=== PATIENT | female | born 1990 | race Caucasian/White ===

== ENCOUNTER → 2017-02-10 | Outpatient (CLI) | payer OTHER ==
--- NOTE | 2017-02-10 11:02 | XR ---
EXAMINATION TYPE: XR shoulder complete RT, XR humerus RT DATE OF EXAM: 02/10/2017 CLINICAL HISTORY: Shoulder contusion per order. Injury one week ago with pain. TECHNIQUE: Three views of the right shoulder are obtained. 2 views right humerus are acquired. COMPARISON: None. FINDINGS: There is no acute fracture/dislocation evident in the right shoulder. The acromioclavicul ar and glenohumeral joint spaces appear within normal limits. The visualized ribs are intact and unr emarkable. Images of right humerus show no acute fracture or dislocation. Visualized portion of right elbow join t is within normal limits. Overlying soft tissue is unremarkable. IMPRESSION: There is no acute fracture or dislocation in the right humerus or shoulder.
== END | disposition home or self-care (01) ==
LOC: RADXRMAIN 10:40
PROVIDERS: ATTEND Emergency Medicine
DX: S40.011A Contusion of right shoulder, initial encounter (principal); S40.021A Contusion of right upper arm, initial encounter

== ENCOUNTER 2017-09-18 11:58 | Outpatient (CLI) | payer BC ==
[2017-09-18 12:19] VITALS: BP 128/76; PULSE 104; RESP 18; TEMP 97.9
--- NOTE | 2017-09-19 15:55 | P.MSEPDOC ---
Presenting Problems - Arrival Data Date of Arrival on Unit: 09/18/17 Time of Arrival on Unit: 12:00 Mode of Transport: Ambulatory - Complaint OB-Reason for Admission/Chief Complaint: NST Comment: grade III placenta Medical History - Information : 2 Para: 1 Term: 1 : 0 Abortions: Spontaneous or Elective: 0 Number of Living Children: 1 - Gestational Age Gestational Age by SHIRLEY (wks/days): 36 Weeks and 4 Days - History Comment: julianna III placenta, bi-weekly NST Review of Systems - Review of Systems Constitutional: No problems Breast: No problems ENT: No problems Cardiovascular: No problems Respiratory: No problems Gastrointestinal: No problems Genitourinary: No problems Musculoskeletal: No problems Neurological: No problems Skin: No problems Vital Signs - Temperature Temperature: 97.9 F Temperature Source: Temporal Artery Scan - Pulse Right Sitting Brachial Pulse Rate: 104 Pulse Assessment Method: Automatic Cuff - Respirations Respiratory Rate: 18 Oxygen Delivery Method: Room Air O2 Sat by Pulse Oximetry: 98 - Blood Pressure Right Arm Sitting Blood Pressure: 128/76 Blood Pressure Mean: 93 Blood Pressure Source: Automatic Cuff Medical Screen Scoring (Pre) - Cervical Exam Dilation: Exam Deferred Effacement: Exam Deferred - Uterine Contractions Frequency: > 5 minutes apart = 1 Duration: N/A Intensity: N/A - Maternal Vital Signs Maternal Temperature: N/A Maternal Blood Pressure: N/A Signs of Preeclampsia: N/A Maternal Respirations: N/A - Pain Assessment Pain Scale Used: Numeric (1 - 10) Pain Intensity: 0 Pain Management Goal: 0 - Maternal Trauma Maternal Trauma: N/A - Assessment Baseline FHR: 135 Heart Rate - NICHD Category: Category I (Normal) = 0 NST: Reactive Position: N/A Station: N/A - Total Score Total Score (Pre): 1 - Level of Risk Level of Risk: Low (0-5) Physician Notification (Post) - Physician Notified Physician Notified Date: 09/18/17 Physician Notified Time: 12:30 Physician/Practitioner Notified:: Dr Walsh Spoke With: Dr Walsh New Order Received: Yes - Notification Comment Comment: NST reactive (bi weekly for grade III placenta). Ok to dc home. Disposition - Disposition OB Disposition: Discharge to home Discharge Date: 09/18/17 Discharge Time: 12:34 I agree with the RN Medical Screening Exam: Yes Risk & Benefit of care provided described in d/c instruction: Yes Diagnosis: OTHER PLACENTAL DISORDERS, THIRD TRIMESTER
== END 2017-09-18 12:35 | disposition home or self-care (01) ==
LOC: FBPOP 11:58
PROVIDERS: ATTEND Obstetrics & Gynecology
DX: O43.893 Other placental disorders, third trimester (principal); Z3A.36 36 weeks gestation of pregnancy
CPT/HCPCS: 59025; 99213

== ENCOUNTER 2017-09-25 18:16 | Inpatient (IN) | payer BC, OTHER ==
[2017-09-25 19:20] LABS: Appearance,Urine Cloudy (Clear); Bilirubin,Urine Negative (Negative); Blood,Urine Moderate (Negative); Color,Urine Yellow; Glucose,Urine (UA) Negative (Negative); Ketones,Urine 4+ (Negative); Leukocyte Esterase,Urine Moderate (Negative); Mucus,Urine Many /hpf; Nitrite,Urine Negative (Negative); PH, Urine 5.5 (5.0-8.0); Protein,Urine 1+ (Negative); RBC,Urine 55 /hpf (0-5); Specific Gravity,Urine 1.018 (1.001-1.035); Urobilinogen,Urine <2.0 mg/dL (<2.0); WBC,Urine 11 /hpf (0-5)
[2017-09-25] MEDS ORDERED: BUTORPHANOL 1 MG/ML 1 ML VIAL IV PRN (20:03)
[2017-09-25] MEDS: LACTATED RINGERS 1,000 ML IV SCH (20:35)
[2017-09-25 20:41] LABS: Basophils % (A) 0 %; Eosinophils # (A) 0.1 k/uL (0-0.7); Eosinophils % (A) 0 %; HCT 36.3 % (34.0-46.0); HGB 11.9 gm/dL (11.4-16.0); Hypochromasia Slight; Lymphocytes # (A) 3.2 k/uL (1.0-4.8); Lymphocytes % (A) 20 %; MCH 25.2 pg (25.0-35.0); MCHC 32.7 g/dL (31.0-37.0); MCV 77.1 fL (80.0-100.0); Mean Platelet Volume 7.5; Microcytosis Slight; Monocytes # (A) 0.7 k/uL (0-1.0); Monocytes % (A) 4 %; Neutrophils # (A) 11.7 k/uL (1.3-7.7); Neutrophils % (A) 74 %; Platelet Count 271 k/uL (150-450); Poikilocytosis Slight; RBC 4.71 m/uL (3.80-5.40); RDW 15.2 % (11.5-15.5); WBC 15.9 k/uL (3.8-10.6)
[2017-09-25 20:43] LABS: Amphetamine Screen,Urine Not Detected (NotDetected); Barbiturate Screen,Urine Not Detected (NotDetected); Benzodiazepines Screen,Urine Not Detected (NotDetected); Cocaine Screen,Urine Not Detected (NotDetected); Methadone Screen, Urine Not Detected (NotDetected); Opiate Screen,Urine Not Detected (NotDetected); Oxycodone Screen, Urine Not Detected (NotDetected); Phencyclidine Screen,Urine Not Detected (NotDetected); Tricyclic Antidepressant,Urine Not Detected (NotDetected); Urn Cannabinoid Scrn Not Detected (NotDetected)
[2017-09-25] MEDS: ceFAZolin 1,000 MG in DEXTROSE/WATER 1 50ML.BAG IVPB SCH (20:48)
[2017-09-25 20:56] LABS: ALT 31 U/L (9-52); AST 24 U/L (14-36); Blood Urea Nitrogen 6 mg/dL (7-17); LDH 519 U/L (313-618); Uric Acid 5.5 mg/dL (3.7-7.4)
--- NOTE | 2017-09-25 21:35 | US ---
EXAMINATION TYPE: US kidneys/renal and bladder DATE OF EXAM: 09/25/2017 COMPARISON: NONE CLINICAL HISTORY: Backpain and . Pelvic and lower back pain x 1 day, patient is [id number] EXAM MEASUREMENTS: Right Kidney: 11.4 x 5.3 x 5.1 cm Left Kidney: 12.1 x 5.2 x 5.5 cm Difficult and limited study due to patient body habitus and advanced Right Kidney: visualized portions wnl, limited by rib shadowing and overlying bowel gas Left Kidney: 0.7cm echogenic focus mid pole, limited visualization due to rib shadowing and overlying bowel gas Bladder: not well seen due to shadowing from head There is no evidence for hydronephrosis at this point in time. No masses are identified. The urinar y bladder is anechoic. Bilateral ureteral jets are seen. IMPRESSION: 1. No acute process. 2. Nonobstructing 7 mm left renal calcification.
--- NOTE | 2017-09-25 22:20 | US ---
EXAMINATION TYPE: US OB >= 14 wk fetus DATE OF EXAM: 09/25/2017 COMPARISON: CLINICAL HISTORY: Abdominal/back painPelvic and lower back pain TECHNIQUE: Transabdominal (TA) GESTATIONAL AGE / DATING Physician Established: (37 weeks/5 days) EDC: 10/11/2017 Dates by LMP: unknown Dates by First Scan: No previous here Dates by Current Scan: (38 weeks/2 days) EDC: 10/07/2017 SURVEY IUP: Single PLACENTA: Posterior, very limited visualization due to shadowing from bone PREVIA: unable to determine, visualization of cervix area very limited due to shadowing from h ead DIMITRI: 12.1 cm Normal CERVICAL LENGTH (transabdominal: norm > 3.0cm): unable to determine, visualization of cervix area tha y limited due to shadowing from head, no transvaginal exam due to dilated cervix BIOMETRY PRESENTATION: Vertex LIE: Longitudinal BPD: 9.4 cm 38 weeks / 1 days HC: 33.6 cm 38 weeks / 3 days AC: 35.1 cm 39 weeks / 0 days FL: 7.6 cm 38 weeks / 5 days ESTIMATED WEIGHT IN GRAMS: 3580 grams ESTIMATED WEIGHT IN LBS/OZ: 7 lbs. 14 oz. WEIGHT PERCENTAGE BASED ON ESTABLISHED DATES: n/a HC/AC: 0.96 Normal FL/AC: 21.56 Normal HEART RATE: 157 bpm RHYTHM: Normal Difficult and limited study due to patient body habitus and advanced age Viable single IUP measuring 38 weeks 2 days with a heart rate of 157bpm and an estimated delivery davie e of 10/07/2017. IMPRESSION: There is no evidence for oligohydramnios. No placenta previa. Cephalic presentation. Cerv ix appears closed.
[2017-09-26] MEDS: LACTATED RINGERS 1,000 ML IV SCH ×5 (01:34→22:27)
[2017-09-26] MEDS: ceFAZolin 1,000 MG in DEXTROSE/WATER 1 50ML.BAG IVPB SCH ×3 (03:53→22:10)
--- NOTE | 2017-09-26 06:16 | P.HPOB ---
History of Present Illness H&P Date: 09/26/17 Chief Complaint: Left flank pain This patient is a pleasant 27-year-old 2 para 1 female estimated date of confinement 10/11/2017 estimated gestational age is 37-6/7 weeks gestation who is admitted last evening with complaints of low back pain and left flank pain. Patient's care is per Dr. Walsh and appears to be complicated by late to seek care. Patient also has had some problems with depression/anxiety this as well. Patient has been uncomfortable for the last month however states last evening became much worse in the lower back and especially on the left side. heart tones were reactive. Urinalysis showed blood and some white blood cells and for this reason I ordered a renal ultrasound which showed a 7 mm left kidney stone. ultrasound was normal with an estimated weight of 7 lbs. 14 oz. Patient's pain did defervesce fairly quickly however she had an elevated blood pressure on admission of 133/90. For this reason, patient is admitted for preeclampsia evaluation and serial blood pressures. Preeclampsia labs are negative. She has had 2 other elevated blood pressures of 146/88 and 133/90. Patient states that her pain is much better at this time. Review of Systems Genitourinary: Reports flank pain, Reports Menstruation: Reports amenorrhea Past Medical History Additional Past Medical History / Comment(s): History of anemia, hypoglycemia History of Any Multi-Drug Resistant Organisms: None Reported Past Surgical History: No Surgical Hx Reported Additional Past Surgical History / Comment(s): wisdom teeth Past Anesthesia/Blood Transfusion Reactions: No Reported Reaction Past Psychological History: Anxiety, Depression Smoking Status: Never smoker Past Alcohol Use History: None Reported Past Drug Use History: None Reported - Past Family History Mother Family Medical History: No Reported History Medications and Allergies Home Medications Medication Instructions Recorded Confirmed Type Pnv with Ca,No.71/Iron/FA 1 tab PO DAILY 04/01/14 09/25/17 History [Vol-Plus Tablet] Allergies Allergy/AdvReac Type Severity Reaction Status Date / Time No Known Allergies Allergy Verified 09/25/17 18:39 Exam - Vital Signs Vital signs: Vital Signs Temp Pulse Resp BP Pulse Ox 09/26/17 05:29 103 H 138/81 09/26/17 02:30 97.9 F 101 H 16 125/64 09/26/17 01:39 115 H 18 133/90 09/25/17 23:35 98.6 F 111 H 18 133/74 09/25/17 22:31 112 H 18 146/88 97 09/25/17 21:52 91 129/72 09/25/17 21:16 102 H 18 127/81 09/25/17 21:05 97 132/95 09/25/17 19:50 97.0 F L 89 18 129/82 09/25/17 18:40 98.1 F 114 H 16 139/90 Intake and Output 09/25/17 09/25/17 09/26/17 14:59 22:59 06:59 Other: # Voids 2 1 Weight 110.223 kg - OBG Physical Exam Abdomen: bowel sounds normal, no diffuse tenderness, no bruit present, no guarding noted, no hepatomegaly, no splenomegaly, no mass Cervix: Cervical exam per the RN shows her to be 3 cm dilated. Results Ultrasound shows vertex fetus 7 lbs. 14 oz. Renal ultrasound shows a 7 mm nonobstructing left renal calculi. Preeclampsia labs are okay. CBC and toxicology screen are negative. Urinalysis is consistent with a kidney stone or kidney infection. Result Diagrams: 09/25/17 20:28 09/25/17 20:28 Abnormal Lab Results - Last 24 Hours (Table) 09/25/17 09/25/17 09/25/17 Range/Units 19:00 19:00 20:28 WBC 15.9 H (3.8-10.6) k/uL MCV 77.1 L (80.0-100.0) fL Neutrophils # 11.7 H (1.3-7.7) k/uL BUN (7-17) mg/dL Urine Appearance Cloudy H (Clear) Urine Protein 1+ H (Negative) Urine Ketones 4+ H (Negative) Urine Blood Moderate H (Negative) Ur Leukocyte Esterase Moderate H (Negative) Urine RBC 55 H (0-5) /hpf Urine WBC 11 H (0-5) /hpf Urine Mucus Many H (None) /hpf U Random Total Protein 23 H (<12) mg/dL 09/25/17 Range/Units 20:28 WBC (3.8-10.6) k/uL MCV (80.0-100.0) fL Neutrophils # (1.3-7.7) k/uL BUN 6 L (7-17) mg/dL Urine Appearance (Clear) Urine Protein (Negative) Urine Ketones (Negative) Urine Blood (Negative) Ur Leukocyte Esterase (Negative) Urine RBC (0-5) /hpf Urine WBC (0-5) /hpf Urine Mucus (None) /hpf U Random Total Protein (<12) mg/dL Microbiology - Last 24 Hours (Table) 09/25/17 19:00 Urine Culture - Preliminary Urine,Clean Catch Assessment and Plan Assessment: This is a pleasant 27-year-old 2 para 1 female 37-6/7 weeks gestation who presented last evening with low back and flank pain. Patient's evaluation did show a left renal calculus, however patient also was noted to have mild blood pressure elevations. blood pressures ranged from 110-120/70-80. Preeclampsia labs were negative. Patient hours had at least 3 blood pressures that were significantly elevated consistent with gestational hypertension. I did start the patient on IV antibiotics due to the white blood cells in the urine and possibility of a kidney infection. Patient's pain is significantly improved and heart tones are reactive. I discussed clinical situation with the patient and she will discuss with her primary physician Dr. Walsh this morning as to whether to proceed with delivery at this time due to the blood pressure elevations or continue observation. (1) Third trimester Current Visit: Yes Status: Acute Code(s): Z34.93 - ENCNTR FOR SUPRVSN OF NORMAL PREG, UNSP, THIRD TRIMESTER SNOMED Code(s): 20756532 (2) Renal calculus, left Current Visit: Yes Status: Acute Code(s): N20.0 - CALCULUS OF KIDNEY SNOMED Code(s): 86209454 (3) Gestational hypertension Current Visit: Yes Status: Acute Code(s): O13.9 - GESTATIONAL HTN W/O SIGNIFICANT PROTEINURIA, UNSP TRIMESTER SNOMED Code(s): 31388203
--- NOTE | 2017-09-26 06:24 | P.MSEPDOC ---
Presenting Problems - Arrival Data Date of Arrival on Unit: 09/25/17 Time of Arrival on Unit: 18:10 Mode of Transport: Portable - Complaint OB-Reason for Admission/Chief Complaint: Possible Onset of Labor Comment: having contx all day. getting stronger. pain scale=10 Medical History - Information : 2 Para: 1 Term: 1 : 0 Abortions: Spontaneous or Elective: 0 Number of Living Children: 1 - Gestational Age Gestational Age by SHIRLEY (wks/days): 37 Weeks and 5 Days - History Complications: Other Comment: nst's weekly for grade 3 placenta Review of Systems - Review of Systems Constitutional: No problems Breast: No problems ENT: No problems Cardiovascular: No problems Respiratory: No problems Gastrointestinal: No problems Genitourinary: No problems Musculoskeletal: No problems Neurological: No problems Skin: No problems Vital Signs - Temperature Temperature: 97.9 F Temperature Source: Temporal Artery Scan - Pulse Right Radial Pulse Rate: 103 Pulse Assessment Method: Automatic Cuff - Respirations Respiratory Rate: 16 - Blood Pressure Right Arm Blood Pressure: 138/81 Blood Pressure Mean: 100 Blood Pressure Source: Automatic Cuff Medical Screen Scoring (Pre) - Cervical Exam Dilation: 1-3 cm = 1 Effacement: Exam Deferred Membranes: Intact - Uterine Contractions Frequency: > 5 minutes apart = 1 Duration: N/A Intensity: Contraction palpated strong = 1 - Maternal Vital Signs Maternal Temperature: N/A Maternal Blood Pressure: Diastolic > 89 = 1 Signs of Preeclampsia: N/A Maternal Respirations: N/A - Pain Assessment Pain Location and Character: Left, Lower, Back, Abdomen Pain Scale Used: Numeric (1 - 10) Pain Intensity: 10 Pain Description: *Acute, Aching, Cramping, Pressure Pain Frequency: Intermittent Pain Duration: 60 - Maternal Trauma Maternal Trauma: N/A - Assessment Baseline FHR: 150 Heart Rate - NICHD Category: Category I (Normal) = 0 NST: Reactive Position: N/A Station: N/A - Total Score Total Score (Pre): 4 - Level of Risk Level of Risk: Low (0-5) Physician Notification (Pre) - Physician Notified Physician Notified Date: 09/25/17 Physician Notified Time: 19:00 Physician/Practitioner Notifed:: melinda Spoke With: melinda Medical Screen Scoring (Post) - Cervical Exam Dilation: 1-3 cm = 1 Membranes: Intact - Uterine Contractions Frequency: > 5 minutes apart = 1 Duration: > 40 seconds = 2 Intensity: N/A - Maternal Vital Signs Maternal Temperature: N/A Maternal Blood Pressure: N/A Signs of Preeclampsia: N/A Maternal Respirations: N/A - Assessment Heart Rate: 140 Heart Rate - NICHD Category: Category I (Normal) = 0 NST: Reactive Position: N/A - Total Score Total Score (Post): 4 - Post Treatment Level of Risk Post Treatment Level of Risk: Low (0-5) Physician Notification (Post) - Physician Notified Physician Notified Date: 09/25/17 Physician Notified Time: 19:44 Physician/Practitioner Notified:: Dr Rojas - Notification Comment Comment: reported on pts c/o abd/flank pain, reactive fhts, irreg cntrx pattern , unchanged vag exam from office and after 1 hr, vital signs, UA results. orders to admit OBV, obtain PIH labs, stadol for pian, complete OB and u/s results, strain urine. Call with needs. Disposition - Disposition OB Disposition: Admit Transferred to:: st 9 I agree with the RN Medical Screening Exam: Yes Risk & Benefit of care provided described in d/c instruction: Yes Diagnosis: LOW BACK PAIN
[2017-09-26] MEDS ORDERED: OXYTOCIN 10 UNIT/ML 1 ML VIAL IM PRN (07:04)
[2017-09-26] MEDS ORDERED: LIDOCAINE 1% (PF) 10 MG/ML (30 ML SDV) SQ PRN (07:04)
[2017-09-26] MEDS ORDERED: CARBOPROST TROMETHAMINE 250 MCG/ML 1 ML AMP IM PRN (07:04)
[2017-09-26] MEDS ORDERED: METHYLERGONOVINE 0.2 MG/ML 1 ML AMP IM PRN (07:04)
[2017-09-26] MEDS ORDERED: TERBUTALINE 1 MG/ML VIAL SQ PRN (07:04)
[2017-09-26] MEDS ORDERED: OXYTOCIN 20 UNITS/1000 ML NS 1,000 ML IV SCH ×2 (07:15→21:00)
--- NOTE | 2017-09-26 09:20 | P.PN ---
Progress Note - Text Progress Note Date: 09/26/17 I spoke with the patient this morning. Her pain has improved but is not gone. Since she has had at least 3 elevated blood pressures over a 12 hour period of time, she does have gestational hypertension. Her preeclampsia labs have been negative. Since she is over 37 weeks, the decision is made to proceed with induction of labor secondary to gestational hypertension. She does have a favorable cervix. She is started on oxytocin induction of labor and did undergo artificial rupture of membranes with clear fluid noted. Her cervix at that time was 3-1/2-4 cm/60-70%/-2 station. She would like epidural anesthesia once she starts having regular contractions.
[2017-09-26] MEDS ORDERED: BUPIVACAINE (PF) 0.25% 30 ML VIAL ONE (11:20)
[2017-09-26] MEDS ORDERED: fentaNYL (PF) 50 MCG/ML 5 ML AMP ONE (11:20)
[2017-09-26] MEDS ORDERED: SODIUM CHLORIDE 0.9% 100 ML BAG ONE (11:20)
[2017-09-26] MEDS ORDERED: diphenhydrAMINE 25 MG CAP PO PRN (20:46)
[2017-09-26] MEDS ORDERED: LANOLIN CREAM 5 GM TUBE TOPICAL PRN (20:46)
[2017-09-26] MEDS ORDERED: HYDROCORTISONE 2.5% RECTAL CREAM 30 GM TUBE RECTAL PRN (20:46)
[2017-09-26] MEDS ORDERED: diphenhydrAMINE 50 MG CAP PO PRN (20:46)
[2017-09-26] MEDS ORDERED: ZOLPIDEM 5 MG TAB PO PRN (20:46)
[2017-09-26] MEDS ORDERED: ACETAMINOPHEN TAB 325 MG TAB PO PRN (20:46)
[2017-09-26] MEDS ORDERED: diphenhydrAMINE 50 MG/ML 1 ML VIAL IVP PRN ×2 (20:46)
[2017-09-26] MEDS ORDERED: BENZOCAINE/MENTHOL SPRAY 1 GM/SPRAY AEROSOL TOPICAL PRN (20:46)
[2017-09-26] MEDS ORDERED: WITCH HAZEL 1 EACH MED..PAD TOPICAL PRN (20:46)
[2017-09-26] MEDS ORDERED: SIMETHICONE 80 MG CHEWABLE PO PRN (20:46)
--- NOTE | 2017-09-26 20:52 | P.PROBDLV ---
Vaginal Delivery Note - . Vaginal Delivery Note: 27-year-old presented at 37 weeks for induction of labor due to gestational hypertension. She was 3-4 cm dilated, 60% effaced, and -3 station. She is not promise. heart tones 135-140 with moderate variability and reactive. Pitocin was started and amniotomy was performed at 8:43 AM clear fluid noted. When she was uncomfortable she did get an epidural, she was 5 cm dilated at this time. She made very slow progress throughout the day. She was 6-7 cm dilated for a few hours after several position changes she was completely dilated at 2021, pushed until the infant's head was . At this time the heart tones were in the 60s. I felt an episiotomy was necessary at this time so the perineum was anesthetized with 1% lidocaine and a midline episiotomy was performed. 's head delivered OA, anterior shoulder delivered gentle downward traction followed by posterior shoulder and rest of body at 2024. Nose and mouth bulb suctioned, cord clamped and cut, infant placed on mother's abdomen. Apgars 9, 9, weight 8 lbs. 8 oz. Placenta delivered spontaneously, intact with three-vessel cord at 2030. Vagina, cervix , and perineum were inspected. Second-degree midline episiotomy was repaired with 2-0 Vicryl. Estimated blood loss 250 mL. Mother and baby in stable condition.
[2017-09-26] MEDS: IBUPROFEN 600 MG TAB PO PRN (22:12)
[2017-09-26] MEDS: SENNOSIDES-DOCUSATE SODIUM 1 EACH TAB PO SCH (22:12)
[2017-09-27] MEDS: ceFAZolin 1,000 MG in DEXTROSE/WATER 1 50ML.BAG IVPB SCH ×3 (06:01→19:34)
[2017-09-27] MEDS: IBUPROFEN 600 MG TAB PO PRN ×2 (06:02→14:24)
[2017-09-27] MEDS: SENNOSIDES-DOCUSATE SODIUM 1 EACH TAB PO SCH (08:34)
--- NOTE | 2017-09-27 08:59 | P.DS ---
Providers Date of admission: 09/26/17 11:28 Expected date of discharge: 09/27/17 Attending physician: Dania Walsh Primary care physician: Stated None - Discharge Diagnosis(es) (1) Normal vaginal delivery Current Visit: Yes Status: Acute Hospital Course: Patient presented with complaints of flank pain and then had a few elevated blood pressures. She was diagnosed with gestational hypertension underwent a induction of labor since she was over 37 weeks gestation. She underwent normal vaginal delivery and had an uncomplicated course. She'll be discharged home day #1 in stable condition. Follow-up with Dr. Walsh in 6 weeks. Plan - Discharge Summary Discharge Rx Participant: No New Discharge Prescriptions: New Ibuprofen [Motrin] 600 mg PO Q6HR PRN #30 tab PRN Reason: Mild Pain Or Fever >= 100.5 No Action Pnv with Ca,No.71/Iron/FA [Vol-Plus Tablet] 1 tab PO DAILY Discharge Medication List Pnv with Ca,No.71/Iron/FA [Vol-Plus Tablet] 1 tab PO DAILY 04/01/14 [History] Ibuprofen [Motrin] 600 mg PO Q6HR PRN #30 tab 09/27/17 [Rx] Follow up Appointment(s)/Referral(s): Dania Walsh DO [Doctor of Osteopathic Medicine] - 6 Weeks Discharge Disposition: HOME SELF-CARE
[2017-09-27 21:09] VITALS: BP 120/70; PULSE 70; RESP 18; TEMP 98
== END 2017-09-27 20:50 | disposition home or self-care (01) | DRG 775 ==
LOC: FBPOP 18:16 → 4FBP 19:49 → INTOOBSV 09-26 07:10 → OBSVTOIN 09-26 07:10
PROVIDERS: ADMIT Obstetrics & Gynecology; ATTEND Obstetrics & Gynecology
PROC: 0W8NXZZ Division of Female Perineum, External Approach (ICD-10-PCS; principal; 2017-09-26)
PROC: 10E0XZZ Delivery of Products of Conception, External Approach (ICD-10-PCS; 2017-09-26)
PROC: 3E033VJ Introduction of Other Hormone into Peripheral Vein, Percutaneous Approach (ICD-10-PCS; 2017-09-26)
PROC: 00HU33Z Insertion of Infusion Device into Spinal Canal, Percutaneous Approach (ICD-10-PCS; 2017-09-26)
PROC: 3E0R3NZ Introduction of Analgesics, Hypnotics, Sedatives into Spinal Canal, Percutaneous Approach (ICD-10-PCS; 2017-09-26)
DX: O13.4 Gestational [pregnancy-induced] hypertension without significant proteinuria, complicating childbirth (principal); O99.89 Other specified diseases and conditions complicating pregnancy, childbirth and the puerperium; N20.0 Calculus of kidney; Z37.0 Single live birth; Z3A.37 37 weeks gestation of pregnancy
CPT/HCPCS: 59025; 76770; 76805; 80306; 81001; 82565; 82570; 83615; 84156; 84450; 84460; 84520; 84550; 85025; 87086; 88307; 99213

== ENCOUNTER → 2017-11-03 | Outpatient (CLI) | payer BC, OTHER ==
--- NOTE | 2017-11-03 15:52 | US ---
EXAMINATION TYPE: US renals and bladder DATE OF EXAM: 11/03/2017 COMPARISON: CLINICAL HISTORY: R10.09 Left Flank Pain, N20.0 Nephrolithiasis. Left flank pain. Hx of renal stone. EXAM MEASUREMENTS: Right Kidney: 10.8 x 4.9 x 4.3 cm Left Kidney: 11.4 x 4.9 x 3.7 cm Right Kidney: wnl Left Kidney: wnl Bladder: distended, wnl Bilateral Jets seen IMPRESSION: 1. Normal bilateral renal ultrasound
== END | disposition home or self-care (01) ==
LOC: RADUSMAIN 14:38
PROVIDERS: ATTEND Nurse Practitioner Family
DX: R10.9 Unspecified abdominal pain (principal)
CPT/HCPCS: 76770

== ENCOUNTER → 2018-02-19 | Outpatient (CLI) | payer BC, OTHER ==
--- NOTE | 2018-02-19 08:15 | US ---
EXAMINATION TYPE: US abdomen limited DATE OF EXAM: 02/19/2018 COMPARISON: Renal US CLINICAL HISTORY: R10.11 RUQ Abdominal pain. Pt states RUQ pain EXAM MEASUREMENTS: Liver Length: 19.7 cm Gallbladder Wall: 0.2 cm CBD: 0.5 cm Right Kidney: 11.2 x 4.7 x 5.5 cm Pancreas: wnl, tail obscured by overlying bowel gas Liver: Enlarged, difficult to penetrate, heterogeneous Gallbladder: wnl Evidence for sonographic Monae's sign: Yes CBD: wnl Right Kidney: wnl, lower pole gassed out Heterogeneous hyperechoic liver consistent with diffuse fatty infiltration. IMPRESSION: No gallstones or ultrasound evidence for acute cholecystitis.
[2018-02-19 08:38] LABS: Basophils % (A) 0 %; Eosinophils # (A) 0.2 k/uL (0-0.7); Eosinophils % (A) 3 %; HCT 38.4 % (34.0-46.0); HGB 12.6 gm/dL (11.4-16.0); Lymphocytes % (A) 35 %; MCHC 32.8 g/dL (31.0-37.0); MCV 79.3 fL (80.0-100.0); Mean Platelet Volume 6.5; Monocytes # (A) 0.5 k/uL (0-1.0); Monocytes % (A) 6 %; Neutrophils # (A) 4.7 k/uL (1.3-7.7); Neutrophils % (A) 55 %; Platelet Count 300 k/uL (150-450); RBC 4.85 m/uL (3.80-5.40); RDW 14.7 % (11.5-15.5); WBC 8.5 k/uL (3.8-10.6)
[2018-02-19 08:48] LABS: Albumin 3.7 g/dL (3.5-5.0); Chloride 110 mmol/L (98-107); Glucose 117 mg/dL (74-99); Potassium 4.9 mmol/L (3.5-5.1); Total Protein 6.9 g/dL (6.3-8.2)
[2018-02-19 08:49] LABS: ALT 29 U/L (9-52); AST 24 U/L (14-36); Alkaline Phosphatase 62 U/L (38-126); Anion Gap 7 mmol/L; Blood Urea Nitrogen 13 mg/dL (7-17); Calcium 9.2 mg/dL (8.4-10.2); Carbon Dioxide 25 mmol/L (22-30); Sodium 142 mmol/L (137-145); Total Bilirubin 0.6 mg/dL (0.2-1.3)
== END | disposition home or self-care (01) ==
LOC: RADUSWWP 07:42
PROVIDERS: ATTEND Family Medicine
DX: R10.11 Right upper quadrant pain (principal)
CPT/HCPCS: 36415; 76705; 80053; 85025

== ENCOUNTER → 2018-02-26 | Outpatient (CLI) | payer BC, OTHER ==
--- NOTE | 2018-02-26 15:17 | NM ---
Nuclear medicine hepatobiliary scan. HISTORY: Pain. DOSAGE: The patient received 8 ounces ensure plus and 5.4 mCi of Technetium 99m Choletec. FINDINGS: There is normal hepatic extraction. The gallbladder is seen by 15 minutes. There is bilia ry to bowel clearance by 15 minutes. Ejection fraction is 94%. IMPRESSION: 1. No evidence of cholecystitis. 2. Ejection fraction 94% can occasionally be seen with hyperdynamic gallbladder. Correlate clinically .
== END ==
LOC: RADNMMAIN 12:56
PROVIDERS: ATTEND Family Medicine
DX: R10.11 Right upper quadrant pain (principal)
CPT/HCPCS: 78226; A9537

== ENCOUNTER 2018-11-28 19:01 | Emergency (ER) | payer OTHER ==
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
[2018-11-28 20:04] VITALS: BP 138/86; PULSE 91; RESP 16; TEMP 98.6
== END 2018-11-28 20:04 | disposition home or self-care (01) ==
LOC: EC 19:01
DX: M25.512 Pain in left shoulder (principal); R51 Headache; V89.2XXA Person injured in unspecified motor-vehicle accident, traffic, initial encounter; Y92.410 Unspecified street and highway as the place of occurrence of the external cause
CPT/HCPCS: 99283

== ENCOUNTER 2019-01-10 10:47 | Emergency (ER) | payer OTHER ==
[2019-01-10 10:53] VITALS: RESP 18; TEMP 98.6
[2019-01-10] MEDS ORDERED: SODIUM CHLORIDE 0.9% 1,000 ML IV STA (11:15)
--- NOTE | 2019-01-10 11:26 | ED ---
Skin/Abscess/FB HPI - General Chief complaint: Skin/Abscess/Foreign Body Stated complaint: Abscess/Infection on side Time Seen by Provider: 01/10/19 10:54 Source: patient Mode of arrival: ambulatory Limitations: no limitations - History of Present Illness Initial comments: Patient is a 28-year-old female presenting to the emergency Department with complaints of an abscess on the right side of her abdomen for approximately 4 days. Patient went to an urgent care yesterday and was started on clindamycin. She was told that if the wound looks worse she needs to go to the ER. Patient states she woke up this morning and the redness is spreading along with the pain. Patient states she had an abscess removed on the back of her right leg approximately a month ago. Patient completed a full course of Bactrim and Keflex approximately 3-4 weeks ago. Patient states she has took 2 tablets of the clindamycin so far. Patient denies fever, chills, nausea, vomiting at this time. 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 Patient d enies any other complaints at this time. Upon arrival to ER, patient is slightly tachycardia at 114. Rest of vital signs are stable, Afebrile. - Related Data Home Medications Medication Instructions Recorded Confirmed Pnv with Ca,No.71/Iron/FA 1 tab PO DAILY 04/01/14 09/25/17 [Vol-Plus Tablet] Previous Rx's Medication Instructions Recorded Ibuprofen [Motrin] 600 mg PO Q6HR PRN #30 tab 09/27/17 Allergies Allergy/AdvReac Type Severity Reaction Status Date / Time No Known Allergies Allergy Verified 01/10/19 10:53 Review of Systems ROS Statement: Those systems with pertinent positive or pertinent negative responses have been documented in the HPI. ROS Other: All systems not noted in ROS Statement are negative. Past Medical History Past Medical History: No Reported History Additional Past Medical History / Comment(s): History of anemia, hypoglycemia History of Any Multi-Drug Resistant Organisms: None Reported Past Surgical History: No Surgical Hx Reported Additional Past Surgical History / Comment(s): wisdom teeth Past Anesthesia/Blood Transfusion Reactions: No Reported Reaction Past Psychological History: Anxiety, Depression Smoking Status: Never smoker Past Alcohol Use History: Rare Past Drug Use History: None Reported - Past Family History Mother Family Medical History: No Reported History General Exam - General Exam Comments Initial Comments: GENERAL: Well-appearing, well-nourished and in no acute distress. HEAD: Atraumatic, normocephalic. EYES: Pupils equal round and reactive to light, extraocular movements intact, sclera anicteric, conjunctiva are normal. ENT: TMs normal, nares patent, oropharynx clear without exudates. Moist mucous membranes. NECK: Normal range of motion, supple without lymphadenopathy or JVD. LUNGS: Breath sounds clear to auscultation bilaterally and equal. No wheezes rales or rhonchi. HEART: Regular rate and rhythm without murmurs, rubs or gallops. ABDOMEN: Soft, nontender, normoactive bowel sounds. No guarding, no rebound. No masses appreciated. There is an abscess on the right lower abdomen, approximately the size of a nickel, that is actively draining. There is some surrounding induration. There is a large surrounding area of erythema/ warmth spreading towards the mid abdomen. Patient is tender all around the wound. : Deferred EXTREMITIES: Normal range of motion, no pitting or edema. No clubbing or cyanosis. NEUROLOGICAL: Cranial nerves II through XII grossly intact. Normal speech, normal gait. PSYCH: Normal mood, normal affect. SKIN: Warm, Dry, normal turgor, no rashes or lesions noted except for what is described above on the abdomen. Limitations: no limitations Course Vital Signs 01/10/19 01/10/19 10:50 13:09 Temperature 98.6 F Pulse Rate 114 H 84 Respiratory 18 18 Rate Blood Pressure 139/96 124/93 O2 Sat by Pulse 97 98 Oximetry Medical Decision Making - Medical Decision Making Patient is a 28-year-old female presenting with an abscess and cellulitis of her right lower abdomen x 4 days. Patient denies fever, chills at this time. Patient went to urgent care yesterday and was started on clindamycin. Patient has taken 2 doses of the clindamycin so far. On exam patient has medical incised abscess in the right lower abdomen with a large area of surrounding erythema. Area is tender to the touch. CBC, CMP, UA are within normal limits. Lactic acid is normal at 1.4. Blood cultures and wound culture was obtained today. Patient was given a dose of IV clindamycin. Cellulitis was outlined with pen. Patient will continue with oral clindamycin. Strict return parameters were discussed with the patient and she verbalized understanding. Patient has an appointment with her PCP on Friday. Case is discussed with Dr. Vences and he agrees the plan of care.. - Lab Data Result diagrams: 01/10/19 11:40 01/10/19 11:40 Lab Results 01/10/19 01/10/19 01/10/19 Range/Units 11:40 11:40 11:40 WBC 8.4 (3.8-10.6) k/uL RBC 5.11 (3.80-5.40) m/uL Hgb 12.6 (11.4-16.0) gm/dL Hct 38.6 (34.0-46.0) % MCV 75.6 L (80.0-100.0) fL MCH 24.6 L (25.0-35.0) pg MCHC 32.5 (31.0-37.0) g/dL RDW 16.7 H (11.5-15.5) % Plt Count 320 (150-450) k/uL Neutrophils % 60 % Lymphocytes % 32 % Monocytes % 5 % Eosinophils % 2 % Basophils % 1 % Neutrophils # 5.0 (1.3-7.7) k/uL Lymphocytes # 2.7 (1.0-4.8) k/uL Monocytes # 0.4 (0-1.0) k/uL Eosinophils # 0.1 (0-0.7) k/uL Basophils # 0.0 (0-0.2) k/uL Anisocytosis Slight Microcytosis Slight Sodium 139 (137-145) mmol/L Potassium 4.2 (3.5-5.1) mmol/L Chloride 105 (98-107) mmol/L Carbon Dioxide 25 (22-30) mmol/L Anion Gap 9 mmol/L BUN 12 (7-17) mg/dL Creatinine 0.65 (0.52-1.04) mg/dL Est GFR (CKD-EPI)AfAm >90 (>60 ml/min/1.73 sqM) Est GFR (CKD-EPI)NonAf >90 (>60 ml/min/1.73 sqM) Glucose 144 H (74-99) mg/dL Plasma Lactic Acid Sal 1.4 (0.7-2.0) mmol/L Calcium 8.7 (8.4-10.2) mg/dL Total Bilirubin 0.5 (0.2-1.3) mg/dL AST 23 (14-36) U/L ALT 23 (9-52) U/L Alkaline Phosphatase 68 (38-126) U/L Total Protein 7.4 (6.3-8.2) g/dL Albumin 3.9 (3.5-5.0) g/dL Urine Color Urine Appearance (Clear) Urine pH (5.0-8.0) Ur Specific [place] (1.001-1.035) Urine Protein (Negative) Urine Glucose (UA) (Negative) Urine Ketones (Negative) Urine Blood (Negative) Urine Nitrite (Negative) Urine Bilirubin (Negative) Urine Urobilinogen (<2.0) mg/dL Ur Leukocyte Esterase (Negative) Urine RBC (0-5) /hpf Urine WBC (0-5) /hpf Ur Squamous Epith Cells (0-4) /hpf Urine Bacteria (None) /hpf Urine Mucus (None) /hpf 01/10/19 Range/Units 11:40 WBC (3.8-10.6) k/uL RBC (3.80-5.40) m/uL Hgb (11.4-16.0) gm/dL Hct (34.0-46.0) % MCV (80.0-100.0) fL MCH (25.0-35.0) pg MCHC (31.0-37.0) g/dL RDW (11.5-15.5) % Plt Count (150-450) k/uL Neutrophils % % Lymphocytes % % Monocytes % % Eosinophils % % Basophils % % Neutrophils # (1.3-7.7) k/uL Lymphocytes # (1.0-4.8) k/uL Monocytes # (0-1.0) k/uL Eosinophils # (0-0.7) k/uL Basophils # (0-0.2) k/uL Anisocytosis Microcytosis Sodium (137-145) mmol/L Potassium (3.5-5.1) mmol/L Chloride (98-107) mmol/L Carbon Dioxide (22-30) mmol/L Anion Gap mmol/L BUN (7-17) mg/dL Creatinine (0.52-1.04) mg/dL Est GFR (CKD-EPI)AfAm (>60 ml/min/1.73 sqM) Est GFR (CKD-EPI)NonAf (>60 ml/min/1.73 sqM) Glucose (74-99) mg/dL Plasma Lactic Acid Sal (0.7-2.0) mmol/L Calcium (8.4-10.2) mg/dL Total Bilirubin (0.2-1.3) mg/dL AST (14-36) U/L ALT (9-52) U/L Alkaline Phosphatase (38-126) U/L Total Protein (6.3-8.2) g/dL Albumin (3.5-5.0) g/dL Urine Color Yellow Urine Appearance Clear (Clear) Urine pH 6.0 (5.0-8.0) Ur Specific [place] 1.028 (1.001-1.035) Urine Protein 1+ H (Negative) Urine Glucose (UA) Negative (Negative) Urine Ketones Negative (Negative) Urine Blood Small H (Negative) Urine Nitrite Negative (Negative) Urine Bilirubin Negative (Negative) Urine Urobilinogen <2.0 (<2.0) mg/dL Ur Leukocyte Esterase Trace H (Negative) Urine RBC 3 (0-5) /hpf Urine WBC 4 (0-5) /hpf Ur Squamous Epith Cells 2 (0-4) /hpf Urine Bacteria Rare H (None) /hpf Urine Mucus Few H (None) /hpf Disposition Clinical Impression: Cellulitis of right abdominal wall, Abscess, abdomen Disposition: HOME SELF-CARE Condition: Stable Instructions (If sedation given, give patient instructions): Cellulitis (ED), Abscess (ED) Additional Instructions: Please return to the Emergency Department if symptoms worsen or any other c oncerns. Follow-up with PCP on Friday as discussed. Is patient prescribed a controlled substance at d/c from ED?: No Referrals: Dontrell Christianson MD [Primary Care Provider] - 1-2 days
[2019-01-10 11:58] LABS: Anisocytosis Slight; Basophils % (A) 1 %; Eosinophils # (A) 0.1 k/uL (0-0.7); Eosinophils % (A) 2 %; HCT 38.6 % (34.0-46.0); HGB 12.6 gm/dL (11.4-16.0); Lymphocytes # (A) 2.7 k/uL (1.0-4.8); Lymphocytes % (A) 32 %; MCH 24.6 pg (25.0-35.0); MCHC 32.5 g/dL (31.0-37.0); MCV 75.6 fL (80.0-100.0); Mean Platelet Volume 6.7; Microcytosis Slight; Monocytes # (A) 0.4 k/uL (0-1.0); Monocytes % (A) 5 %; Neutrophils % (A) 60 %; Platelet Count 320 k/uL (150-450); RBC 5.11 m/uL (3.80-5.40); RDW 16.7 % (11.5-15.5); WBC 8.4 k/uL (3.8-10.6)
[2019-01-10 12:00] LABS: Appearance,Urine Clear (Clear); Bacteria,Urine Rare /hpf; Bilirubin,Urine Negative (Negative); Blood,Urine Small (Negative); Color,Urine Yellow; Glucose,Urine (UA) Negative (Negative); Ketones,Urine Negative (Negative); Leukocyte Esterase,Urine Trace (Negative); Mucus,Urine Few /hpf; Nitrite,Urine Negative (Negative); Protein,Urine 1+ (Negative); RBC,Urine 3 /hpf (0-5); Specific Gravity,Urine 1.028 (1.001-1.035); Squamous Epithelial Cell,Urine 2 /hpf (0-4); Urobilinogen,Urine <2.0 mg/dL (<2.0)
[2019-01-10 12:12] LABS: ALT 23 U/L (9-52); AST 23 U/L (14-36); African American GFR (CKD) >90 (>60 ml/min/1.73 sqM); Albumin 3.9 g/dL (3.5-5.0); Alkaline Phosphatase 68 U/L (38-126); Anion Gap 9 mmol/L; Blood Urea Nitrogen 12 mg/dL (7-17); Calcium 8.7 mg/dL (8.4-10.2); Carbon Dioxide 25 mmol/L (22-30); Chloride 105 mmol/L (98-107); Glucose 144 mg/dL (74-99); Potassium 4.2 mmol/L (3.5-5.1); Sodium 139 mmol/L (137-145); Total Bilirubin 0.5 mg/dL (0.2-1.3); Total Protein 7.4 g/dL (6.3-8.2)
[2019-01-10] MEDS ORDERED: CLINDAMYCIN 900 MG in DEXTROSE 5% IN WATER 50 ML IVPB STA ×2 (12:40)
[2019-01-10 13:11] VITALS: BP 124/93; PULSE 84
== END 2019-01-10 14:27 | disposition home or self-care (01) ==
LOC: EC 10:47
DX: L03.311 Cellulitis of abdominal wall (principal)
CPT/HCPCS: 36415; 80053; 81001; 83605; 85025; 87040; 87070; 87077; 87186; 87205; 96361; 96365; 99283